=== PATIENT | male | born 1980 | race Caucasian/White ===

== ENCOUNTER 2018-08-16 13:23 | Emergency (ER) | payer OTHER ==
[~2018-08-16] VITALS: Ht 177.8 cm; Wt 99.8 kg
[~2018-08-16 13:23] MED LIST: ALLOPURINOL 30300 M1; BENICAR; COZAAR 25 MG TA25 M1 PO; FLEXERIL PO; NORCO 5-325 TA1 EACH PO
[2018-08-16] MEDS ORDERED: NORCO 5-325 TA1 EACH PO (14:02)
[2018-08-16 14:43] VITALS: BP 121/72
== END 2018-08-16 14:45 | disposition home or self-care (01) ==
LOC: M.ERS 13:23
DX: S61.412A Laceration without foreign body of left hand, initial encounter (principal); I10 Essential (primary) hypertension; M10.9 Gout, unspecified; F17.220 Nicotine dependence, chewing tobacco, uncomplicated; W26.8XXA Contact with other sharp object(s), not elsewhere classified, initial encounter; Y93.89 Activity, other specified; Y92.89 Other specified places as the place of occurrence of the external cause; Y99.8 Other external cause status

== ENCOUNTER 2019-02-27 01:36 | Emergency (ER) | payer OTHER ==
[~2019-02-27] VITALS: Ht 177.8 cm; Wt 99.8 kg
[2019-02-27] MEDS ORDERED: EFFEXOR XR75 MG PO (01:54)
[2019-02-27] MEDS ORDERED: OMEPRAZOLE 20 M20 M1 PO (01:54)
[2019-02-27] MEDS ORDERED: NORCO 7.5-3251 EACH PO (03:55)
[2019-02-27 04:10] VITALS: BP 130/70
== END 2019-02-27 04:10 | disposition home or self-care (01) ==
LOC: M.ERS 01:36
DX: S93.491A Sprain of other ligament of right ankle, initial encounter (principal); F17.220 Nicotine dependence, chewing tobacco, uncomplicated; I10 Essential (primary) hypertension; M10.9 Gout, unspecified; Z90.89 Acquired absence of other organs; X50.1XXA Overexertion from prolonged static or awkward postures, initial encounter; Y92.89 Other specified places as the place of occurrence of the external cause; Y93.67 Activity, basketball; Y99.8 Other external cause status

== ENCOUNTER 2019-11-19 03:20 | Emergency (ER) | payer OTHER ==
[~2019-11-19] VITALS: Ht 177.8 cm; Wt 102.1 kg
[~2019-11-19 03:20] MED LIST changes: +EFFEXOR XR75 MG PO; +NORCO 7.5-3251 EACH PO; +OMEPRAZOLE 20 M20 M1 PO
[2019-11-19] MEDS ORDERED: WELLBUTRIN SR150 MG PO (03:33)
[2019-11-19] MEDS ORDERED: HYDROCODON-ACE1 EAC7 PO (03:55)
[2019-11-19 04:26] VITALS: BP 124/66
== END 2019-11-19 04:29 | disposition home or self-care (01) ==
LOC: M.ERS 03:20
DX: S92.335A Nondisplaced fracture of third metatarsal bone, left foot, initial encounter for closed fracture (principal); I10 Essential (primary) hypertension; M10.9 Gout, unspecified; Z90.89 Acquired absence of other organs; F17.290 Nicotine dependence, other tobacco product, uncomplicated; V03.90XA Pedestrian on foot injured in collision with car, pick-up truck or van, unspecified whether traffic or nontraffic accident, initial encounter; Y92.89 Other specified places as the place of occurrence of the external cause; Y93.89 Activity, other specified; Y99.8 Other external cause status

== ENCOUNTER 2020-05-17 21:00 | Emergency (ER) | payer OTHER ==
[~2020-05-17] VITALS: Ht 177.8 cm; Wt 97.5 kg
[~2020-05-17 21:00] MED LIST changes: +HYDROCODON-ACE1 EAC7 PO; +WELLBUTRIN SR150 MG PO
[2020-05-17] MEDS ORDERED: ZESTRIL20 MG PO (21:11)
[2020-05-17 21:45] LABS: ABSOLUTE EOSINOPHILS 0.1 thou/uL (0.0-0.7); ABSOLUTE LYMPHOCYTES 1.4 thou/uL (0.8-5.3); ABSOLUTE MONOCYTES 0.5 thou/uL (0.0-1.2); ABSOLUTE NEUTROPHILS 2.7 thou/uL (1.6-8.1); BASOPHILS 0.8 %; EOSINOPHILS 1.9 %; HEMATOCRIT 42.5 % (42.0-52.0); HEMOGLOBIN 14.9 gm/dL (14.0-18.0); LYMPHOCYTES 29.2 %; MCH 35.1 pg (26.0-34.0); MCV 100.4 fL (80.0-100.0); MONOCYTES 10.8 %; MPV 8.6 fl. (7.2-11.1); NUCLEATED RBCS 0 /100WBC; PLATELET COUNT* 191 thou/uL (150-400); POLYS 57.3 %; RBC 4.23 mil/uL (4.50-6.00); RDW-CV 13.3 % (10.5-14.5); WBC 4.7 thou/uL (4.0-11.0)
[2020-05-17 21:59] LABS: CALCIUM 8.3 mg/dL (8.5-10.1); CREATININE 1.1 mg/dL (0.6-1.3); POTASSIUM 3.9 mmol/L (3.5-5.1)
[2020-05-17 22:04] LABS: ALBUMIN 3.8 g/dL (3.4-5.0); TOTAL BILIRUBIN 0.7 mg/dL (<0.1-1.0)
[2020-05-17 22:17] LABS: URINE BLOOD 1+ (Negative); URINE CLARITY CLEAR; URINE COLOR YELLOW; URINE GLUCOSE-RANDOM NEGATIVE (Negative); URINE KETONES NEGATIVE (Negative); URINE LEUKOCYTES-REFLEX NEGATIVE (Negative); URINE NITRITE-REFLEX NEGATIVE (Negative); URINE PROTEIN NEGATIVE (Negative); URINE SPECIFIC GRAVITY >= 1.030 (1.005-1.030)
[2020-05-17 22:25] LABS: AMP/METHAMP POSITIVE (Negative); BARBITURATES Negative (Negative); BENZODIAZEPINES Negative (Negative); COCAINE POSITIVE (Negative); METHADONE Negative (Negative); OPIATES Negative (Negative); PCP Negative (Negative); THC Negative (Negative)
[2020-05-17 22:26] LABS: ICTOTEST (BILI CONFIRMATORY) Negative (Negative); URINE BILIRUBIN 1+ (Negative)
[2020-05-17 22:33] LABS: CRYSTALS None Seen /LPF (None Seen); HYALINE CASTS 0-3 Few /LPF (None Seen); MUCUS 4-6 Moderate strn/LPF (None Seen); SQUAMOUS 0-3 Few /LPF (0-3); URINE RBC 0-2 Rare /HPF (0-2); URINE WBC-REFLEX 0-5 Rare /HPF (0-5)
[2020-05-17 22:34] LABS: BACTERIA-REFLEX 1-9 Few /HPF (None Seen)
[2020-05-17 23:23] VITALS: BP 148/88
--- NOTE | 2020-05-18 09:05 | EKG ---
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 [employer]: [place] : 1980 Requested By: Tabatha Ramos Order Number: [id number] MD: Sammy Sanchez Measurements Intervals [place] Rate: 80 P: 36 MA: 129 QRS: 37 QRSD: 90 T: 36 QT: 376 QTc: 434 Interpretive Statements Sinus rhythm Baseline wander in lead(s) V1 Compared to ECG 08/23/2013 22:37:52 No significant changes Electronically Signed On 05-18-2020 9:05:05 CDT by Sammy Sanchez [email or web address] <ELECTRONICALLY SIGNED> By: Sammy Sanchez MD, [facility] 05/18/20904 16 16 Sammy Sanchez MD, [facility] /EPI
== END 2020-05-17 23:24 | disposition home or self-care (01) ==
LOC: M.ERS 21:00
PROVIDERS: Personal Emergency Response Attendant
DX: S93.402A Sprain of unspecified ligament of left ankle, initial encounter (principal); F41.9 Anxiety disorder, unspecified; F19.10 Other psychoactive substance abuse, uncomplicated; F15.90 Other stimulant use, unspecified, uncomplicated; F14.90 Cocaine use, unspecified, uncomplicated; I10 Essential (primary) hypertension; M10.9 Gout, unspecified; F17.200 Nicotine dependence, unspecified, uncomplicated; Z79.899 Other long term (current) drug therapy; Z90.89 Acquired absence of other organs; X50.1XXA Overexertion from prolonged static or awkward postures, initial encounter; Y93.9 Activity, unspecified; Y92.89 Other specified places as the place of occurrence of the external cause; Y99.9 Unspecified external cause status